=== PATIENT | male | born 1960 | race African-American/Black ===

== ENCOUNTER 2020-10-22 15:50 | Inpatient (IN) | payer OTHER ==
[~2020-10-22] VITALS: Ht 182.9 cm; Wt 90.0 kg
[2020-10-22 17:18] LABS: EOSINOPHILS % 1.8 % (0.0-5.0); HEMATOCRIT. 26.1 % (42.0-52.0); HEMOGLOBIN. 8.7 g/dL (14.0-18.0); LYMPHOCYTES % 19.8 % (20.0-50.0); MEAN CORPUSCULAR HEMOGLOBIN 31.7 pg (28.0-32.0); MEAN CORPUSCULAR VOLUME 95.4 fL (80.0-94.0); MEAN PLATELET VOLUME 9.9 fl (7.4-10.4); NEUTROPHILS % 70.4 % (40.0-76.0); PLATELET 118 x1000/uL (130-400); RED BLOOD CELL COUNT 2.73 mill/uL (4.7-6.1); RED CELL DISTRIBUTION WIDTH 18.2 % (11.6-14.6)
[2020-10-22 17:23] LABS: CHLORIDE 107 mEq/L (98-107)
[2020-10-22 17:29] LABS: ETHANOL BLOOD < 10 mg/dL
[2020-10-22] MEDS ORDERED: INSULIN REGULAR (HUMULIN R) 300UNITS/3ML VIAL IV ONE (19:15)
[2020-10-22] MEDS ORDERED: DEXTROSE 50% WATER 50ML SYRINGE IV ONE (19:15)
[2020-10-22] MEDS ORDERED: CALCIUM GLUCONATE 1,000 MG in DEXT 5% WATER 100 ML IV ONE (19:15)
[2020-10-22] MEDS ORDERED: CALCIUM GLUCONATE 1GM PREMIX 50 ML IV NR (20:00)
[2020-10-22] MEDS ORDERED: ENOXAPARIN 100MG/ML SYR SUBCUT ONE (22:15)
[2020-10-22] MEDS ORDERED: ASPIRIN 81MG TABLET PO ONE (22:15)
[2020-10-22] MEDS ORDERED: LORAZEPAM 2MG/ML CPJ IV PRN (22:45)
[2020-10-22] MEDS ORDERED: CLONIDINE 0.1MG TABLET PO PRN (22:45)
[2020-10-22] MEDS ORDERED: MORPHINE SULFATE 2 MG/ML CPJ (NOT FOR IM USE) IV PRN (22:45)
[2020-10-22] MEDS ORDERED: ONDANSETRON HCL 4MG/2ML INJ IV PRN (22:45)
[2020-10-22] MEDS ORDERED: ACETAMINOPHEN 325MG TABLET PO PRN (22:45)
[2020-10-22] MEDS ORDERED: ENOXAPARIN 40MG/0.4ML SYR SUBCUT SCH (23:00)
[2020-10-22] MEDS ORDERED: ENOXAPARIN 30MG/0.3ML SYR SUBCUT SCH (23:00)
[2020-10-23 04:57] LABS: BASOPHILS % 1.2 % (0.0-2.0); EOSINOPHILS % 1.8 % (0.0-5.0); HEMATOCRIT. 25.9 % (42.0-52.0); HEMOGLOBIN. 8.6 g/dL (14.0-18.0); LYMPHOCYTES % 22.7 % (20.0-50.0); MEAN CORPUSCULAR HEMOGLOBIN 31.8 pg (28.0-32.0); MEAN PLATELET VOLUME 9.8 fl (7.4-10.4); MONOCYTES % 9.8 % (2.0-8.0); NEUTROPHILS % 64.5 % (40.0-76.0); PLATELET 116 x1000/uL (130-400); RED BLOOD CELL COUNT 2.72 mill/uL (4.7-6.1); RED CELL DISTRIBUTION WIDTH 17.5 % (11.6-14.6)
[2020-10-23 05:10] VITALS: BP 148/100
[2020-10-23 05:10] LABS: PHOSPHORUS 5.6 mg/dL (2.5-4.9)
[2020-10-23 05:15] LABS: CREATINE KINASE MB FRACTION 6.8 ng/mL (0.5-3.6)
[2020-10-23] MEDS ORDERED: NALOXONE HCL 0.4MG/ML VIAL IV PRN (07:15)
[2020-10-23] MEDS ORDERED: FOLIC ACID 1MG TABLET PO SCH (09:00)
== END 2020-10-23 08:46 | disposition left against medical advice (07) | DRG 312 ==
LOC: ER 16:51 → MICUSO 22:13 → SUPCPDRO 22:38 → EDBEDREQSVC 10-23 00:20 → 6WST 10-23 07:08
PROVIDERS: ADMIT Internal Medicine Nephrology; ATTEND Internal Medicine Nephrology
DX: R55 Syncope and collapse (principal); N18.6 End stage renal disease; I12.0 Hypertensive chronic kidney disease with stage 5 chronic kidney disease or end stage renal disease; E11.22 Type 2 diabetes mellitus with diabetic chronic kidney disease; E87.5 Hyperkalemia; Z20.822 Contact with and (suspected) exposure to COVID-19; Z53.29 Procedure and treatment not carried out because of patient's decision for other reasons
CPT/HCPCS: 36415; 80048; 80053; 80320; 82553; 82962; 83735; 83880; 84100; 84132; 84484; 85025; 87426; 93005; 99291; J0610; J1650; J1815; J7060; G0480

== ENCOUNTER 2021-09-05 01:15 | Emergency (ER) | payer OTHER ==
[~2021-09-05] VITALS: Ht 180.3 cm; Wt 91.0 kg
[2021-09-05] MEDS ORDERED: ONDANSETRON HCL 4MG/2ML INJ IV STA (01:18)
[2021-09-05] MEDS ORDERED: VANCOMYCIN 1G PREMIX 200 ML IV ONE (01:30)
[2021-09-05] MEDS ORDERED: SODIUM CHLORIDE 0.9% 1,000 ML IV ONE (01:30)
[2021-09-05] MEDS ORDERED: PIPERACILLIN/TAZ 3.375G PREMIX 50 ML IV ONE (01:30)
[2021-09-05 01:49] LABS: CHLORIDE 88 mEq/L (98-107)
[2021-09-05 01:57] LABS: HEMATOCRIT. 22.6 % (42.0-52.0); HEMOGLOBIN. 7.3 g/dL (14.0-18.0); MEAN CORPUSCULAR HEMOGLOBIN 29.6 pg (28.0-32.0); MEAN CORPUSCULAR VOLUME 92.1 fL (80.0-94.0); MEAN PLATELET VOLUME 8.5 fl (7.4-10.4); PLATELET 186 x1000/uL (130-400); RED BLOOD CELL COUNT 2.45 mill/uL (4.7-6.1); RED CELL DISTRIBUTION WIDTH 15.9 % (11.6-14.6)
[2021-09-05 02:01] LABS: ETHANOL BLOOD < 10 mg/dL
[2021-09-05 02:19] LABS: BG BASE EXCESS -10.6 mmol/L (-2.0-2.0); BG CARBOXYHEMOGLOBIN 0.3 % (0.5-1.5); BG DEOXYHEMOGLOBIN 1.6 % (0.0-5.0); BG FRACTION INSPIRED OXYGEN 28; BG HCO3 ACT 13.6 mmol/L (22.0-26.0); BG METHEMOGLOBIN 0.2 % (0.0-1.5); BG OXYGEN SATURATION 98.4 % (92.0-98.5); BG OXYHEMOGLOBIN 97.9 % (94.0-97.0); BG PCO2 24.6 mmHg (35.0-45.0); BG PO2 138.4 mmHg (75.0-100.0); BG SAMPLE SITE RIGHT BRACHIAL; BG VENT MODE NASAL CANNULA
[2021-09-05 02:59] LABS: PLATELET ESTIMATE NORMAL
[2021-09-05] MEDS ORDERED: NOREPINEPHRINE 8MG/250ML PMX 250 ML IV STA (03:08)
[2021-09-05] MEDS ORDERED: DEXTROSE 50% WATER 50ML SYRINGE IV ONE (04:45)
[2021-09-05] MEDS ORDERED: INSULIN REGULAR (HUMULIN R) 300UNITS/3ML VIAL IV ONE (04:45)
[2021-09-05] MEDS ORDERED: ALBUTEROL (0.083%) 2.5MG/3ML NEB HHN ONE (04:45)
[2021-09-05] MEDS ORDERED: SODIUM CHLORIDE 0.9% 1000ML BAG (SEPSIS BOLUS) IV NR (04:45)
[2021-09-05] MEDS ORDERED: CALCIUM CHLORIDE 1GM/10ML SYR IV ONE ×2 (04:45→10:07)
[2021-09-05] MEDS ORDERED: SODIUM BICARBONATE 8.4% 1 MEQ/ML 50ML SYR IV ONE ×2 (04:45→10:07)
[2021-09-05] MEDS ORDERED: ALBUTEROL (0.5%) 2.5MG/0.5ML NEB HHN ONE (05:09)
[2021-09-05 06:00] VITALS: BP 130/56
[2021-09-05] MEDS ORDERED: DEXTROSE 50% WATER 50ML SYRINGE IV NR (06:18)
[2021-09-05] MEDS ORDERED: INSULIN REGULAR (HUMULIN R) 300UNITS/3ML VIAL IV NR (06:18)
[2021-09-05] MEDS ORDERED: SODIUM BICARBONATE 8.4% 1 MEQ/ML 50ML SYR IV NR (06:19)
[2021-09-05] MEDS ORDERED: CALCIUM CHLORIDE 1GM/10ML SYR IV NR (06:19)
[2021-09-05] MEDS ORDERED: AMIODARONE HCL 900 MG in DEXT 5% WATER 482 ML IV PRN ×4 (07:15)
[2021-09-05] MEDS ORDERED: MORPHINE SULFATE 2 MG/ML CPJ (NOT FOR IM USE) IV PRN (08:15)
[2021-09-05] MEDS ORDERED: GUAIFENESIN 200MG/10ML SUGAR FREE UDC PO PRN (08:15)
[2021-09-05] MEDS ORDERED: NA PHOS,M-B/NA PHOS,DI-BA ENEMA 118ML PR PRN (08:15)
[2021-09-05] MEDS ORDERED: ACETAMINOPHEN 325MG TABLET PO PRN (08:15)
[2021-09-05] MEDS ORDERED: HYDROCODONE/ACETAMINOPHEN 5/325MG TABLET PO PRN (08:15)
[2021-09-05] MEDS ORDERED: CLONIDINE 0.1MG TABLET PO PRN (08:15)
[2021-09-05] MEDS ORDERED: MAGNESIUM/ALUMINUM HYDROXIDE/SIMETHICONE 30ML UDC PO PRN (08:15)
[2021-09-05] MEDS ORDERED: ONDANSETRON HCL 4MG/2ML INJ IV PRN (08:15)
[2021-09-05] MEDS ORDERED: DOCUSATE SODIUM 100MG CAPSULE PO PRN (08:15)
[2021-09-05] MEDS ORDERED: SODIUM CHLORIDE 0.9% 1,000 ML IV SCH (08:15)
[2021-09-05] MEDS ORDERED: DIPHENHYDRAMINE 50MG/ML VIAL IV PRN (08:15)
[2021-09-05] MEDS ORDERED: AMIODARONE HCL 50MG/ML 3ML VIAL IV ONE (10:07)
[2021-09-05] MEDS ORDERED: ETOMIDATE 2MG/ML 10ML VIAL IV ONE (10:07)
[2021-09-05] MEDS ORDERED: EPINEPHRINE 0.1MG/ML (1:10,000) 10ML SYR ONE (10:07)
[2021-09-05] MEDS ORDERED: LIDOCAINE HCL 2% 5ML SYRINGE IV ONE (10:07)
[2021-09-05] MEDS ORDERED: PIPERACILLIN/TAZOBACTAM 3.375 G in DEXTROSE 5% WATER 50 ML IV SCH (18:00)
== END 2021-09-05 18:03 ==
LOC: ER 01:15 → CANBEDREQ 10:29 → ER 18:03
DX: I46.9 Cardiac arrest, cause unspecified (principal); I21.9 Acute myocardial infarction, unspecified; A41.9 Sepsis, unspecified organism; R65.21 Severe sepsis with septic shock; J96.00 Acute respiratory failure, unspecified whether with hypoxia or hypercapnia; I13.2 Hypertensive heart and chronic kidney disease with heart failure and with stage 5 chronic kidney disease, or end stage renal disease; I50.9 Heart failure, unspecified; N17.9 Acute kidney failure, unspecified; E11.22 Type 2 diabetes mellitus with diabetic chronic kidney disease; N18.6 End stage renal disease; D64.9 Anemia, unspecified; G93.41 Metabolic encephalopathy; Z79.4 Long term (current) use of insulin; Z99.2 Dependence on renal dialysis
CPT/HCPCS: 31500; 36415; 36600; 70450; 71045; 74176; 80053; 80320; 82375; 82805; 83605; 83690; 84484; 85025; 87040; 87077; 87186; 93005; 94640; 96361; 96365; 96367; 96375; 99291; J0282; J1815; J2405; J2543; J3370; J3490; J7030; J7060; Z7610; 84145; G0480